=== PATIENT | female | born 1995 | race Caucasian/White ===

== ENCOUNTER 2019-09-11 19:47 | Outpatient (CLI) | payer BC ==
[~2019-09-11] VITALS: Ht 160 cm; Wt 88.6 kg
[2019-09-11 19:45] VITALS: BP 124/77; PULSE 120; TEMP 98.7
--- NOTE | 2019-09-11 19:45 | NUR ---
1943 G1L0 38.3 WEEK GEST TO LR4 WITH C/O CONTRACTIONS. STATES WAS IN DR EUGENE OFFICE AROUND 1700 AND HAD MEMBRANES STRIPPED AND HAS BEEN JAC SINCE THEN. STATES CONTRACTIONS FEEL HARDER WHEN WALKING AND SORT OF GO AWAY WHEN SITTING DOWN. EFM ON. SVE /-2 WITH NO CHANGE SINCE SVE IN DR EUGENE OFFICE. ADM ASSESSMENT DONE.
[2019-09-11 20:10] VITALS: BP 124/77; PULSE 120; TEMP 98.7
[2019-09-11] MEDS ORDERED: PRENATAL TABLET PO (20:10)
[2019-09-11 20:20] VITALS: BP 144/90; PULSE 115
[2019-09-11 20:40] VITALS: BP 141/85; PULSE 107
--- NOTE | 2019-09-11 20:40 | NUR ---
2039 SVE WITH NO CHANGE. CONTRACTIONS CONT BUT MORE IRREGULAR AND MILD. 2042 DR ULRICH NOTIFIED OF SVE, CONTRACTIONS, STRIPPED MEMBRANES AND VS. ORDER TO DISMISS RECEIVED. 2099 HOME WITH INSTRUCTIONS.
== END 2019-09-11 21:00 | disposition home or self-care (01) ==
LOC: LDRO 19:47 → EDBD 19:47 → LDRO 21:00
DX: O62.9 Abnormality of forces of labor, unspecified (principal); O26.893 Other specified pregnancy related conditions, third trimester; Z3A.38 38 weeks gestation of pregnancy

== ENCOUNTER 2019-09-21 08:43 | Inpatient (IN) | payer BC ==
[~2019-09-21] VITALS: Ht 167.6 cm; Wt 90.5 kg
[~2019-09-21 08:43] MED LIST: PRENATAL TABLET PO
[2019-09-22] VITALS (42 sets, daily range): BP systolic 111–155; BP diastolic 58–88; PULSE 77–137; TEMP 97.7–99.5
--- NOTE | 2019-09-22 06:52 | NUR ---
0652-40.[address] Miller's ambulatory to LR 5 for scheduled induction of labor. Reports good movement occasional contractions and denies leaking of fluid or vaginal bleeding. Assisted into gown and placed on EFM. Assessment complete. Consents reviewed and signed. Updated on plan of care. IV to left hand, blood collected and sent to lab. LR infusing per MD orders and protocol, see EMAR. 0745-SVE /-2, RADHA, Pitocin per MD order and protocol started at this time at 2mu/min see EMAR.
[2019-09-22 07:46] LABS: HEMOGLOBIN 12.1 g/dl (12.5-16.0); MEAN CELL VOLUME 87 fl (80.0-100.0); MEAN CORPUSCULAR HEMOGLOBIN 29 pg (27.0-31.0); MEAN CORPUSCULAR HGB CONC 33 g/dl (33.0-37.0); MEAN PLATELET VOLUME 11.9 fl (7.4-10.4); PLATELET COUNT 174 K/mm3 (130-400); RED BLOOD COUNT 4.15 M/mm3 (4.10-5.30); REDCELL DISTRIBUTION WIDTH-CV 13.3 % (11.5-14.5)
[2019-09-22 07:47] LABS: HEMATOCRIT 36.2 % (37.0-47.0)
--- NOTE | 2019-09-22 08:50 | NUR ---
0850-Dr. Miller on unit in to see patient and discuss plan of care. 0852-SVE by , unchnaged AROM clear fluid noted. 0934-Patient requests epidural. Dr. Miller on unit okay with epidural at this time. DMITRY Schaffer notified of patient request.
[2019-09-22 09:16] LABS: BAND 3 % (0-10); LYMPHOCYTE 22 % (20.0-51.0); NEUTROPHILS 70 % (42.0-75.2); PLATELET ESTIMATE NORMAL (NORMAL)
--- NOTE | 2019-09-22 10:00 | NUR ---
0856-8000 Difficulty tracing FHR due to maternal positioning for epidural placement. Patient also breathing through contractions with intense pain per patient. RN frequently adjusts EFM. 1006-SS administered by Jose Martinez CRNA. Patient tolerates well. Repositioned WL. 1014-FHR decel down to 100bpm with broken tracing. RN to bedside. Adjusts EFM. Difficulty tracing FHR. Pitocin off at 1016. 1018-SVE by this RN -/ contacted while placing patient in hands and knees. requests FSE placed. . 1025-FSE by this RN. FHR 120bpm, updated. Orders to keep pitocin off and continue to monitor.
--- NOTE | 2019-09-22 10:55 | NUR ---
1055-Hodgson to DD, clear yellow urine, SVE /-1, Repositioned LL with peanut ball.
--- NOTE | 2019-09-22 12:15 | NUR ---
1215-Patient , updated MD. Orders to continue to [facility].
--- NOTE | 2019-09-22 13:20 | NUR ---
1320-Dr. Miller called unit for update, see MD notification. 1330-Patient reports "a lot of pressure"Patient complete and 0 station per PATTI Del Angel. 1340-Dr. Miller updated. 1349-Patient begins pushing with contractions. Moves vertex well. FHR baseline down to 95-100bpm with accelerations and moderate variability. 1355- updated, see MD notification. 1400-Oxygen via oxymask at 10l/min. 1410-Stopped pushing with patient per MD order, MD on unit and in need in another room. Repositoned patient LL 1442-Patient called out with " a lot of pressure." Deep variable in FHR down to 40'sbpm with quick return to baseline. Dr. Miller updated in OR. 1450-Dr. Miller to patient room. 1454-Patient begins pushing with MD at bedside, moves vertex well.. 1459-Spontaneous delivery of infant head immediately followed by body. Viable male infant to mothers abdomen, care of assumed by PATTI Ralph. Cord clamped x2 and cut by FOB. Apgars 8/9/9. 1502-Spontaneous delivery of intact placenta by MD. Fundal massage initially boggy and firms with massage, lochia WNL. EBL 300ml. Pitocin bolus per MD order and protocol. Belkys care provided. Update patient on recovery plan of care and safety.
--- NOTE | 2019-09-22 15:30 | NUR ---
1530-MD on unit. Updated with fundal massage findings boggy with moderate amount of lochia. Orders to monitor. VSS. 1550-MD updated with lochia moderate and moderate size clot expressed with massage. VSS. Order to give IM methergine, see EMAR.
--- NOTE | 2019-09-22 17:27 | NUR ---
1727-Updated MD on continued moderate lochia and clots expressed with fundal massage. Fundus firm and VSS. Perineum very swollen with ice applied. Orders to give 800mcg rectal cytotec, see EMAR.
--- NOTE | 2019-09-22 18:05 | NUR ---
1805-Patient attempts to void on bedpan, unable to void. Patient up to bedside easily stands but "feels funny." Return patient to bed and VS checked VSS. Fundal massage firm, lochia WNL. Will give bedside shift report and attemmpt to ambulate to room at later time.
[2019-09-23] VITALS: BP 109/59; PULSE 91; TEMP 98.8
[2019-09-23 05:15] VITALS: BP 101/57; PULSE 89; TEMP 97.9
[2019-09-23 08:45] VITALS: BP 113/66; PULSE 84; TEMP 98.3
[2019-09-23] MEDS ORDERED: MOTRIN 800800 MG/TAB PO (16:32)
[2019-09-23 17:45] VITALS: BP 113/60; PULSE 86; TEMP 97.4
[2019-09-23 19:44] VITALS: BP 118/71; PULSE 85; TEMP 97.7
[2019-09-24 09:06] VITALS: BP 112/76; PULSE 76; TEMP 98.1
--- NOTE | 2019-09-24 10:18 | NUR ---
Initial visit; Parents thanked Cheerleading Coach for offering congratulations and God's blessings for the of their son. Cheerleading Coach thanked family for choosing [facility].
== END 2019-09-24 11:46 | disposition home or self-care (01) | DRG 807 ==
LOC: OB 08:43 → LDR 09-22 06:42 → OB 09-22 08:41
PROVIDERS: ADMIT Obstetrics & Gynecology
PROC: 10907ZC Drainage of Amniotic Fluid, Therapeutic from Products of Conception, Via Natural or Artificial Opening (ICD-10-PCS; principal; 2019-09-22)
PROC: 10E0XZZ Delivery of Products of Conception, External Approach (ICD-10-PCS; 2019-09-22)
PROC: 0KQM0ZZ Repair Perineum Muscle, Open Approach (ICD-10-PCS; 2019-09-22)
DX: O48.0 Post-term pregnancy (principal); Z37.0 Single live birth; O69.81X0 Labor and delivery complicated by cord around neck, without compression, not applicable or unspecified; O70.1 Second degree perineal laceration during delivery; Z3A.40 40 weeks gestation of pregnancy
CPT/HCPCS: J2210; J2590; J2791; J2795; J7120